=== PATIENT | female | born 1985 | race Caucasian/White ===

== ENCOUNTER 2016-08-27 10:38 | Emergency (ER) | payer MEDICAID ==
[2016-08-27] MEDS ORDERED: CLINDAMYCIN 150 MG CAPSULE PO STA (10:49)
[2016-08-27] MEDS ORDERED: ACETAMINOPHEN 325 MG TABLET PO STA (10:49)
[2016-08-27] MEDS ORDERED: ACETAMINOPHEN 325 MG TABLET PO ONE (10:52)
[2016-08-27] MEDS ORDERED: CLINDAMYCIN 150 MG CAPSULE PO ONE (10:52)
== END 2016-08-27 11:00 | disposition home or self-care (01) ==
DX: K04.7 Periapical abscess without sinus (principal); K02.9 Dental caries, unspecified
CPT/HCPCS: 99283; A9270

== ENCOUNTER 2016-08-31 13:39 | Emergency (ER) | payer MEDICAID | END 2016-08-31 14:02 | disposition home or self-care (01) | DX: K02.9 Dental caries, unspecified (principal); R19.7 Diarrhea, unspecified ==

== ENCOUNTER 2017-06-02 12:02 | Emergency (ER) | payer MEDICAID ==
[2017-06-02] MEDS ORDERED: AMOXICILLIN 250 MG CAPSULE PO STA (13:38)
[2017-06-02] MEDS ORDERED: DEXAMETHASONE 10 MG/ML VIAL PO STA (13:38)
--- NOTE | 2017-06-02 13:41 | ED Physician Documentation ---
History of Present Illness - Stated complaint Stated Complaint: TOOTH/JAW PX SWELLING - Chief complaint Chief Complaint: Heent - Additonal information Additional information: hx from pt 31 female right lower dental pain and swelling no fever Review of Systems Constitutional: denies: Fever Throat: reports: Dental pain / toothache PD PAST MEDICAL HISTORY - Past Medical History Past Medical History: No Cardiovascular: None Respiratory: None Neuro: None Endocrine/Autoimmune: None GI: Other HEENT: Other - Past Surgical History Past Surgical History: No - Present Medications Home Medications: Ambulatory Orders Medication Instructions Recorded Confirmed Clindamycin HCl [Cleocin HCl] 300 mg PO TID #20 capsule 08/27/16 Penicillin V Potassium 500 mg PO Q6HR #40 tablet 08/31/16 Amoxicillin 500 mg PO Q8H #30 capsule 06/02/17 - Allergies Allergies/Adverse Reactions: Allergies Allergy/AdvReac Type Severity Reaction Status Date / Time diazepam [From Valium] Allergy Unknown Verified 08/27/16 10:50 - Social History Does the pt smoke?: Yes Smoking Status: Current every day smoker Does the pt drink ETOH?: No Does the pt have substance abuse?: No Substance Use and Type: Marijuana - Immunizations Immunizations are current?: No Immunizations: TDAP >10years/unknown, Other immun current PD ED PE NORMAL - Vitals Vital signs reviewed: Yes - HEENT HEENT: Other (no trsimus, extensive decay, TTP R lower premolar, no visible intraoral swelling, small tender submental focal swelling but not diffuse like ludwigs) - Neck Neck: Supple, no meningeal sign - Cardiac Cardiac: RRR, No murmur - Respiratory Respiratory: No respiratory distress, Clear bilaterally Results - Vitals Vitals: Vital Signs - 24 hr 06/02/17 12:06 Temperature 36.8 C Heart Rate 80 Respiratory 18 Rate Blood Pressure 114/73 O2 Saturation 100 Oxygen O2 Source Room air Departure - Departure Disposition: Home, Self Care Clinical Impression: Dental abscess Condition: Good Instructions: ED Abscess Dental Prescriptions: Amoxicillin 500 mg PO Q8H #30 capsule Comments: Motrin and tylenol as needed for pain. Follow up with your dentist this week as scheduled
[2017-06-02 13:56] VITALS: BP 103/80
== END 2017-06-02 13:52 | disposition home or self-care (01) ==
LOC: ED 12:02
DX: K04.7 Periapical abscess without sinus (principal); F17.200 Nicotine dependence, unspecified, uncomplicated
CPT/HCPCS: 99283; A9270